=== PATIENT | male | born 1975 | race Caucasian/White ===

== ENCOUNTER 2018-10-28 18:53 | Inpatient (IN) | payer OTHER ==
[2018-10-28 20:22] LABS: ADD MAN DIFF? NO
[2018-10-28] MEDS: ASPIRIN 81 MG TAB PO (20:22)
[2018-10-28] MEDS: SOD CHLORIDE 0.9% 1,000 ML IV (20:23)
[2018-10-28 20:26] LABS: WHITE BLOOD COUNT 9.2 10^3/ul (4.8-10.8)
[2018-10-28 20:26] LABS: BASOPHIL # 0.1 10^3/ul (0.0-0.1); BASOPHILS % 0.9 % (0.0-2.0); EOSINOPHILS # 0.1 10^3/ul (0.0-0.5); HEMATOCRIT 38.7 % (42.0-52.0); HEMOGLOBIN 12.6 g/dl (14.0-18.0); LYMPHOCYTES # 4.2 10^3/ul (0.8-2.9); LYMPHOCYTES % 45.7 % (15.0-51.0); MEAN CORPUSCULAR HEMOGLOBIN 29.1 pg (29.0-33.0); MEAN CORPUSCULAR HGB CONC 32.6 g/dl (32.0-37.0); MEAN CORPUSCULAR VOLUME 89.4 fl (82.0-101.0); MEAN PLATELET VOLUME 10.2 fl (7.4-10.4); MONOCYTE # 0.8 10^3/ul (0.3-0.9); MONOCYTES % 8.5 % (0.0-11.0); NEUTROPHIL # 3.9 10^3/ul (1.6-7.5); NEUTROPHILS % 42.3 % (39.0-77.0); PLATELET COUNT 276 10^3/UL (140-415); RED BLOOD COUNT 4.33 10^6/ul (4.70-6.10); RED CELL DISTRIBUTION WIDTH 12.5 % (11.5-14.5)
[2018-10-28 20:28] LABS: INR 0.94; PROTIME 12.7 Sec (11.9-14.9)
[2018-10-28 20:29] LABS: PARTIAL THROMBOPLASTIN TIME 24.8 Sec (23.0-35.0)
[2018-10-28 20:33] LABS: ALANINE AMINOTRANSFERASE 29 IU/L (13-69); ALBUMIN 4.6 g/dl (3.3-4.9); ALBUMIN/GLOBULIN RATIO 1.27; ALKALINE PHOSPHATASE 64 IU/L (42-121); ANION GAP 15 (5-13); ASPARTATE AMINO TRANSFERASE 49 IU/L (15-46); BILIRUBIN,INDIRECT 0.1 mg/dl (0-1.1); BILIRUBIN,TOTAL 0.1 mg/dl (0.2-1.3); BLOOD UREA NITROGEN 11 mg/dl (7-20); CALCIUM 10.5 mg/dl (8.4-10.2); CARBON DIOXIDE 20 mmol/L (21-31); CHLORIDE 102 mmol/L (97-110); CREATININE 0.85 mg/dl (0.61-1.24); Estimated GFR > 60 mL/min (>60); GLUCOSE 141 mg/dl (70-220); LIPASE 180 U/L (23-300); POTASSIUM 4.4 mmol/L (3.5-5.1); SODIUM 137 mmol/L (135-144); TOTAL PROTEIN 8.2 g/dl (6.1-8.1)
[2018-10-28 20:43] LABS: TROPONIN-I < 0.012 ng/ml (0.000-0.120)
[2018-10-28] MEDS ORDERED: NITROGLYCERIN (SL) 0.4 MG TAB SL (22:00)
[2018-10-28] MEDS ORDERED: DOCUSATE SODIUM 100 MG CAP PO (22:00)
[2018-10-28] MEDS ORDERED: NACL 0.9% 3 ML SYG IV (22:00)
[2018-10-28] MEDS ORDERED: ONDANSETRON 4 MG INJ IV (22:00)
[2018-10-28] MEDS ORDERED: BISACODYL (EC) 5 MG TAB PO (22:00)
[2018-10-29] MEDS: SOD CHLORIDE 0.9% 1,000 ML IV ×2 (00:32→08:42)
[2018-10-29 01:17] LABS: CREATINE KINASE 1057 IU/L (23-200)
[2018-10-29 01:28] LABS: CK INDEX 1.5; TROPONIN-I < 0.012 ng/ml (0.000-0.120)
[2018-10-29 01:45] LABS: ETHANOL < 10.0 mg/dl (0-0)
[2018-10-29 05:27] LABS: ADD MAN DIFF? NO
[2018-10-29 05:29] LABS: WHITE BLOOD COUNT 11.9 10^3/ul (4.8-10.8)
[2018-10-29 05:29] LABS: BASOPHIL # 0.1 10^3/ul (0.0-0.1); BASOPHILS % 0.6 % (0.0-2.0); EOSINOPHILS # 0.1 10^3/ul (0.0-0.5); EOSINOPHILS % 0.6 % (0.0-7.0); HEMATOCRIT 39.9 % (42.0-52.0); HEMOGLOBIN 13.3 g/dl (14.0-18.0); LYMPHOCYTES # 2.5 10^3/ul (0.8-2.9); LYMPHOCYTES % 20.7 % (15.0-51.0); MEAN CORPUSCULAR HEMOGLOBIN 29.5 pg (29.0-33.0); MEAN CORPUSCULAR HGB CONC 33.3 g/dl (32.0-37.0); MEAN CORPUSCULAR VOLUME 88.5 fl (82.0-101.0); MONOCYTE # 1.3 10^3/ul (0.3-0.9); MONOCYTES % 10.8 % (0.0-11.0); NEUTROPHIL # 7.9 10^3/ul (1.6-7.5); NEUTROPHILS % 66.8 % (39.0-77.0); PLATELET COUNT 259 10^3/UL (140-415); RED BLOOD COUNT 4.51 10^6/ul (4.70-6.10); RED CELL DISTRIBUTION WIDTH 12.6 % (11.5-14.5)
[2018-10-29 05:53] LABS: HEMOGLOBIN A1C 4.9 % (0-5.9)
[2018-10-29 06:03] LABS: ALANINE AMINOTRANSFERASE 35 IU/L (13-69); ALBUMIN 3.7 g/dl (3.3-4.9); ALBUMIN/GLOBULIN RATIO 1.19; ALKALINE PHOSPHATASE 54 IU/L (42-121); ANION GAP 7 (5-13); ASPARTATE AMINO TRANSFERASE 65 IU/L (15-46); BILIRUBIN,INDIRECT 0.5 mg/dl (0-1.1); BILIRUBIN,TOTAL 0.5 mg/dl (0.2-1.3); BLOOD UREA NITROGEN 8 mg/dl (7-20); CALCIUM 10.2 mg/dl (8.4-10.2); CARBON DIOXIDE 26 mmol/L (21-31); CHLORIDE 105 mmol/L (97-110); CHOL/HDL RATIO 3.2 RATIO; CHOLESTEROL 167 mg/dl (100-200); CREATININE 0.67 mg/dl (0.61-1.24); Estimated GFR > 60 mL/min (>60); GLUCOSE 91 mg/dl (70-220); HDL CHOLESTEROL 52 mg/dl (27-67); LDL CHOLESTEROL,CALCULATED 82 mg/dl; MAGNESIUM 2.3 mg/dl (1.7-2.5); POTASSIUM 4.3 mmol/L (3.5-5.1); SODIUM 138 mmol/L (135-144); TOTAL PROTEIN 6.8 g/dl (6.1-8.1); TRIGLYCERIDES 165 mg/dl (0-149)
[2018-10-29 06:09] LABS: TROPONIN-I < 0.012 ng/ml (0.000-0.120)
[2018-10-29 06:17] LABS: CK INDEX 1.3; CREATINE KINASE 1009 IU/L (23-200)
[2018-10-29] MEDS: ASPIRIN 81 MG TAB PO (08:41)
[2018-10-29] MEDS: ACETAMINOPHEN 325 MG TAB PO (08:42)
[2018-10-29] MEDS: ENOXAPARIN 40 MG/0.4 ML SYG SC (08:53)
[2018-10-29] MEDS: SOD CHLORIDE 0.9% 500 ML IV (10:54)
[2018-10-29 12:46] LABS: PHOSPHORUS 3.1 mg/dl (2.5-4.9)
[2018-10-29 14:07] LABS: AMPHETAMINE/METHAMPHETAMINE Negative (NEGATIVE); BARBITURATES Negative (NEGATIVE); BENZODIAZEPINES Negative (NEGATIVE); CANNABINOIDS Negative (NEGATIVE); COCAINE Negative (NEGATIVE); OPIATES Negative (NEGATIVE)
[2018-10-29 14:25] LABS: AMPHETAMINE/METHAMPHETAMINE Negative (NEGATIVE); BARBITURATES Negative (NEGATIVE); BENZODIAZEPINES Negative (NEGATIVE); CANNABINOIDS Negative (NEGATIVE); COCAINE Negative (NEGATIVE); OPIATES Negative (NEGATIVE)
== END 2018-10-29 14:00 | disposition left against medical advice (07) | DRG 312 ==
LOC: E/R 18:53 → 6WM 20:50
DX: R55 Syncope and collapse (principal); E87.2 Acidosis; I48.0 Paroxysmal atrial fibrillation; E86.0 Dehydration; Z79.82 Long term (current) use of aspirin; Z79.01 Long term (current) use of anticoagulants
CPT/HCPCS: 36415; 70450; 71045; 80053; 80061; 80307; 82550; 82553; 83036; 83690; 83735; 84100; 84443; 84484; 85025; 85610; 85730; 93005; 93306; 93880; 93970; 99285-25